=== PATIENT | female | born 1990 ===

== ENCOUNTER 2020-07-25 09:45 | Inpatient (IN) | payer OTHER ==
[2020-07-25] MEDS ORDERED: Ondansetron PF 4 MG/2 ML Vial IVP PRN ×2 (10:17→16:18)
[2020-07-25] MEDS ORDERED: Ibuprofen 800 MG TAB PO PRN (10:17)
[2020-07-25] MEDS ORDERED: Promethazine HCl 25 MG/ML VIAL IM PRN ×2 (10:17→16:18)
[2020-07-25] MEDS ORDERED: hydrALAZINE 20 MG/ML VIAL SLOW IVP PRN ×2 (10:17→16:18)
[2020-07-25] MEDS ORDERED: NS / Oxytocin 40 units/1000ml 1,000 ML IV PRN (10:17)
[2020-07-25] MEDS ORDERED: Butorphanol Tartrate 1 MG/ML VIAL SLOW IVP PRN (10:17)
[2020-07-25] MEDS ORDERED: HYDROcodone/Acetaminophen 5/325 mg Tablet PO PRN ×3 (10:17→16:18)
[2020-07-25] MEDS ORDERED: Lidocaine 1% (PF) 30 ML VIAL SC PRN (10:17)
[2020-07-25] MEDS ORDERED: NS / Oxytocin 40 units/1000ml 1,000 ML ONE (10:23)
[2020-07-25] MEDS ORDERED: Lidocaine 1% (PF) 30 ML VIAL ONE (10:23)
--- NOTE | 2020-07-25 10:23 | PDOC.BPN ---
- Brief Progress Note Encounter Date: 07/25/20 Encounter Time: 10:[address] orders for this patient of Dr stevens here for labor. She initially presented at the [facility] ([facility]) and here for SROM at 4cm. I did not see this patient. I only placed orders at this time as requested by RN.
[2020-07-25] MEDS: Lactated Ringer's 1,000 ML IV SCH ×2 (10:30→12:55)
[2020-07-25 10:50] VITALS: BMI 22.3
[2020-07-25] MEDS ORDERED: Fentanyl 4 mcg/Bup 0.1% Cadd 100 ML ONE (10:58)
[2020-07-25 11:13] LABS: Hemoglobin 10.8 g/dL (12.0-16.0); Mean Corpuscular HGB CONC 34.2 g/dL (32.0-36.0); Mean Corpuscular Hemoglobin 33.7 pg (27.0-31.0); Mean Corpuscular Volume 98.7 fL (78.0-98.0); Mean Platelet Volume 10.4 fL (7.4-10.4); Platelet Count 139 thou/uL (130-400); RBC Distribution Width 12.7 % (11.5-14.5); Red Blood Cell (RBC) Count 3.21 mill/uL (4.20-5.40); White Blood Cell (WBC) Count 16.3 thou/uL (4.8-10.8)
[2020-07-25 11:54] LABS: Syphilis Antibody Nonreactive (Nonreactive); Syphilis Antibody Index 0.02 S/CO (<1.00 Non-Reactive)
[2020-07-25 11:55] LABS: HBSAg Index 0.13 S/CO (0-0.99); HIV (1/2) Antibody/Antigen Non-Reactive (NonReactive); HIV 1/2 INDEX 0.11 S/CO (<1.00); Hep B Surf Ag Non-Reactive S/CO (NonReactive)
[2020-07-25] MEDS ORDERED: Bupivacaine/Epinephrine 0.25% 30 ML VIAL ONE (13:44)
[2020-07-25] MEDS ORDERED: EPHEDRINE 25 MG/5 ML SYRINGE ONE (13:44)
[2020-07-25] MEDS ORDERED: Methylergonovine 0.2 MG/ML VIAL IM PRN (16:18)
[2020-07-25] MEDS ORDERED: Preparation H Ointment 28 GM TUBE PR PRN (16:18)
[2020-07-25] MEDS ORDERED: Lanolin Ointment 7 GM TUBE TOP PRN (16:18)
[2020-07-25] MEDS ORDERED: Bisacodyl 10 MG SUPP PR PRN (16:18)
[2020-07-25] MEDS ORDERED: Zolpidem Tartrate 5 MG TAB PO PRN (16:18)
[2020-07-25] MEDS ORDERED: diphenhydrAMINE 25 MG CAP PO PRN (16:18)
[2020-07-25] MEDS ORDERED: Measles/Mumps/Rubella 10 MCG/0.5 ML VIAL SC ONE (16:18)
[2020-07-25] MEDS ORDERED: Milk Of Magnesia 30 ML UDCUP PO PRN (16:18)
[2020-07-25] MEDS ORDERED: Varicella virus, LIVE 0.5 ML VIAL SC ONE (16:18)
[2020-07-25] MEDS ORDERED: NS / Oxytocin 40 units/1000ml 1,000 ML IV SCH (16:18)
[2020-07-25] MEDS ORDERED: Benzocaine-Menthol 82.5 ML CAN TOP PRN (16:18)
[2020-07-25] MEDS ORDERED: Misoprostol 200 MCG TAB VAG PRN (16:18)
[2020-07-25] MEDS ORDERED: Adacel (T-DAP) 0.5 ML SYRINGE IM ONE (16:30)
[2020-07-25 17:53] LABS: SARS-CoV-2 MS2 Positive; SARS-CoV-2 N Gene Negative; SARS-CoV-2 S Gene Negative; SARS-CoV-2 by NAA Not Detected (NotDetected); SARS-CoV-2 orf1ab Negative
[2020-07-25] MEDS: HYDROcodone/Acetaminophen 5/325 mg Tablet PO PRN (18:10)
[2020-07-25] MEDS: Ferrous Sulfate 325 MG TAB PO SCH (18:49)
[2020-07-25] MEDS: Docusate Calcium (SURFAK) 240 MG CAP PO SCH (21:34)
[2020-07-25] MEDS: Ibuprofen 800 MG TAB PO SCH (21:35)
[2020-07-26] MEDS: Ibuprofen 800 MG TAB PO SCH ×2 (05:36→13:00)
[2020-07-26 06:08] LABS: Hemoglobin 9.2 g/dL (12.0-16.0); Mean Corpuscular HGB CONC 33.3 g/dL (32.0-36.0); Mean Corpuscular Hemoglobin 32.9 pg (27.0-31.0); Mean Corpuscular Volume 98.8 fL (78.0-98.0); Mean Platelet Volume 10.5 fL (7.4-10.4); Platelet Count 122 thou/uL (130-400); White Blood Cell (WBC) Count 13.3 thou/uL (4.8-10.8)
[2020-07-26 06:34] VITALS: BP 100/57; TEMP 98.1
[2020-07-26] MEDS: Ferrous Sulfate 325 MG TAB PO SCH (08:38)
[2020-07-26] MEDS: HYDROcodone/Acetaminophen 5/325 mg Tablet PO PRN (08:38)
[2020-07-26] MEDS: Docusate Calcium (SURFAK) 240 MG CAP PO SCH (08:39)
[2020-07-26] MEDS ORDERED: Prenatal Vitamin 1 TAB PO SCH (09:00)
[2020-07-26] MEDS ORDERED: FLU VACC QS2020-21(6MOS UP)/PF 60 MCG/0.5 ML SYRINGE IM ONE (12:00)
--- NOTE | 2020-07-26 12:23 | PDOC.PP ---
Post Progress Note Post Day #: 1 PO intake tolerated: yes Flatus: yes Ambulation: yes Vital Signs (12 hours) Temp Pulse Resp BP Pulse Ox 07/26/20 04:47 98.1 F 68 14 100/57 L 97 Weight Weight 130 lb - Physical Examination General: NAD Cardiovascular: no m/r/g, RRR Respiratory: clear to auscultation bilaterally, non-labored breathing Abdominal: + bowel sounds, lochia, no distention Extremities: negative homans (B) Neurological: no gross focal deficits (DC later today planned) Psychiatric: A&Ox3, normal affect Result Diagrams: 07/26/20 05:47 Additional Labs: Post Labs Hep Bs Antigen Non-Reactive S/CO (NonReactive) 07/25/20 10:47 Blood Type O POSITIVE 07/25/20 11:29
--- NOTE | 2020-07-26 12:25 | PDOC.LDHP ---
Labor and Delivery H&P HPI: 29 y/o in labor, SROM at home, brought in by EMS. Hx of ETOH abuse after loss of 1st child, states she has not drank all . Admit ETOH blood level is neg. Current gestational age (weeks): 39 Due date: 08/01/20 Grav: 2 Para: 1 Current complications: IUGR Abnormal US findings: Yes (11% percentile growth last US. 05/03 BPP) Current medications: pre- vitamins Allergies/Adverse Reactions: Allergies Allergy/AdvReac Type Severity Reaction Status Date / Time No Known Allergies Allergy Unverified 07/25/20 10:48 Social history: alcohol use - Physical Exam Vital signs reviewed and normal: yes General: NAD, resting Heart: other Lungs: CTAB Abdomen: gravid Extremeties: no edema FHT: category 1 - Assessment L&D Assessment: term patient in labor - Plan Plan: admit to L&D
--- NOTE | 2020-07-27 07:26 | DN ---
DATE OF PROCEDURE: 07/25/2020 TIME OF SERVICE: 1459 hours central daylight savings time. PREOPERATIVE DIAGNOSIS: Intrauterine at 39 weeks and one day with spontaneous rupture of membranes and onset of labor at home. She was brought in by EMS. She went on to deliver without problem. POSTOPERATIVE DIAGNOSIS: Intrauterine at 39 weeks and one day with spontaneous rupture of membranes and onset of labor at home. She was brought in by EMS. She went on to deliver without problem. PROCEDURE PERFORMED: Spontaneous vaginal delivery over intact perineum. FINDINGS: Viable male , weighing 2920 grams or 6 pounds 7 ounces, Apgars 8 and 9. QUANTITATIVE BLOOD LOSS: 97 mL. COMPLICATIONS: None. PROCEDURE IN DETAIL: The patient presented to [facility] where she was admitted to the labor and delivery service. The patient underwent a normal and uneventful labor with normal cervical dilatation until she was found to be completely dilated. She was then allowed to push and was able to bring the baby down and delivered the baby in a vertex presentation without difficulties. Once the head delivered in occiput anterior position, the shoulders followed spontaneously along with the rest of the baby's body. Once out the baby's mouth and nose were bulb suctioned. The cord was clamped and cut and baby was handed to waiting attendants. Cord blood was collected. Gentle fundal massage was performed and the placenta delivered intact without problems. Hemostasis was assured. Quantitative blood loss was calculated. Inspection of the cervix, vaginal vault, and perineum did not reveal any lacerations needing suturing. Once again, hemostasis was within normal limits and the patient was allowed to recover in the labor and delivery room. Baby went to nursery. Job ID: [id number]
== END 2020-07-26 17:20 | disposition home or self-care (01) | DRG 807 ==
LOC: L&D/OP 09:45 → L&D 10:18 → 3SW 18:38
PROVIDERS: ADMIT Obstetrics & Gynecology; ATTEND Obstetrics & Gynecology
PROC: 10E0XZZ Delivery of Products of Conception, External Approach (ICD-10-PCS; principal; 2020-07-25)
DX: O36.5930 Maternal care for other known or suspected poor fetal growth, third trimester, not applicable or unspecified (principal); Z37.0 Single live birth; Z3A.39 39 weeks gestation of pregnancy; Z20.828 Contact with and (suspected) exposure to other viral communicable diseases
CPT/HCPCS: 36415; 51702; 80307; 85027; 86780; 86850; 86900; 86901; 87340; 87389; 87635; 99285; J2001; J2405; U0003